=== PATIENT | female | born 1975 | race Caucasian/White ===

== ENCOUNTER 2020-01-11 08:13 | Emergency (ER) | payer BC ==
[~2020-01-11] VITALS: Ht 170.2 cm; Wt 69.1 kg
[2020-01-11 08:38] LABS: CLARITY,URINE CLEAR (Clear); COLOR,URINE YELLOW (Yellow); GLUCOSE, URINE NEGATIVE (Neg); KETONES,URINE NEGATIVE (Neg); LEUKOCYTE ESTERASE ,URINE NEGATIVE (Neg); NITRITES, URINE NEGATIVE (Neg); OCCULT BLOOD,URINE SMALL (Neg); PROTEIN,URINE NEGATIVE (Neg); UROBILINOGEN,URINE 0.2 E.U/dL (0.2-1.0)
[2020-01-11 08:41] LABS: UA COLLECTION TYPE CLN CATCH MIDSTREAM
[2020-01-11 08:44] LABS: MUCUS STRANDS FEW /LPF (Neg); SQUAMOUS EPITHELIAL CELL,UR MANY /LPF (FEW)
[2020-01-11 08:45] LABS: BACTERIA,URINE 1+ /HPF (Neg); WBC,URINE 0-4 /HPF (0-4)
[2020-01-11] MEDS ORDERED: ondansetron 4mg rapidly disintigrating tab PO ONE (09:55)
[2020-01-11] MEDS ORDERED: ketorolac tromethamine 15mg/ml inj. IM ONE (09:55)
[2020-01-11 10:35] LABS: BASOPHILS # (AUTO) 0.1 X10'3 (0-0.2); BASOPHILS % (AUTO) 0.3 % (0-1); EOSINOPHILS % (AUTO) 0.1 % (0-6); HEMATOCRIT 42.2 % (35.0-45.0); LYMPHOCYTES # (AUTO) 1.3 X10'3 (1.1-4.8); LYMPHOCYTES % (AUTO) 6.3 % (21-51); MEAN CORPUSCULAR HEMOGLOBIN 31.5 PG (27.0-31.0); MEAN CORPUSCULAR HGB CONC 33.2 g/dL (33.0-36.5); MEAN CORPUSCULAR VOLUME 94.9 FL (78-98); MEAN PLATELET VOLUME 9.7 FL (7.4-10.4); MONOCYTES # (AUTO) 1.4 X10'3 (0-0.9); MONOCYTES % (AUTO) 6.5 % (2-12); NEUTROPHILS # (AUTO) 18.3 X10'3 (1.8-7.7); NEUTROPHILS % (AUTO) 86.8 % (42-75); PLATELET COUNT 256 X10'3 (140-440); RED BLOOD COUNT 4.44 X10'6 (4.20-5.60); RED CELL DISTRIBUTION WIDTH 13.4 % (11.5-14.5); WHITE BLOOD COUNT 21.1 X10'3 (4.5-11.0)
[2020-01-11 10:53] LABS: ALANINE AMINOTRANSFERASE 17 U/L (12-78); ALBUMIN 3.6 G/DL (3.4-5.0); ALBUMIN/GLOBULIN RATIO 0.9 (1.1-1.5); ALKALINE PHOSPHATASE 76 IU/L (46-116); ANION GAP 12 (8-16); ASPARTATE AMINO TRANSFERASE 14 U/L (10-37); BLOOD UREA NITROGEN 4 MG/DL (7-18); BUN/CREATININE RATIO 5.8 (6.6-38.0); CALCIUM 8.3 MG/DL (8.5-10.1); CHLORIDE 104 MMOL/L (99-107); CREATININE 0.69 MG/DL (0.40-0.90); GLUCOSE 92 MG/DL (70-104); POTASSIUM 3.2 MMOL/L (3.5-5.1); SODIUM 141 MMOL/L (135-145); TOTAL CARBON DIOXIDE 24.8 MMOL/L (24-32); TOTAL PROTEIN 7.6 G/DL (6.4-8.2); eGFR > 90 ML/MIN
[2020-01-11] MEDS ORDERED: normal saline 1000ML IV soln IVB ONE (11:10)
[2020-01-11 11:32] LABS: URINE HCG NEGATIVE (NEG)
[2020-01-11 12:26] LABS: HEMATOCRIT 38.2 % (35.0-45.0); HEMOGLOBIN 12.6 g/dl (12.0-16.0); MEAN CORPUSCULAR HEMOGLOBIN 31.6 PG (27.0-31.0); PLATELET COUNT 217 X10'3 (140-440); RED BLOOD COUNT 3.98 X10'6 (4.20-5.60); RED CELL DISTRIBUTION WIDTH 13.7 % (11.5-14.5)
[2020-01-11] MEDS ORDERED: CefTRIAXone/D5W-Rocephin 1gm 50 ML IV ONE (13:10)
[2020-01-11] MEDS ORDERED: metroNIDAZOLE-Flagyl 500mg/NS 100 ML IV ONE (13:10)
--- NOTE | 2020-01-11 13:39 | NUR ---
pt resting comfortably, pain 2/10 which is improved since arrival, flagly abx started and vitals updated
--- NOTE | 2020-01-11 13:42 | NUR ---
pharmacy called to check on status of rocephine, will have someone go grab it
--- NOTE | 2020-01-11 14:03 | NUR ---
brought pt water no other needs at this time
--- NOTE | 2020-01-11 14:30 | NUR ---
lab at bedside, pt is resting comfortably, 2nd abx started to infuse
[2020-01-11] MEDS ORDERED: METR-159 PO (15:06)
[2020-01-11] MEDS ORDERED: L. R1CAP4 PO (15:06)
[2020-01-11] MEDS ORDERED: ONDA4TAB6 PO (15:06)
[2020-01-11] MEDS ORDERED: CIPR-230 PO (15:06)
[2020-01-11 15:18] VITALS: BP 105/63
== END 2020-01-11 15:20 | disposition home or self-care (01) ==
LOC: ER 08:15
DX: N83.202 Unspecified ovarian cyst, left side (principal); R10.32 Left lower quadrant pain; Z98.51 Tubal ligation status; Z98.890 Other specified postprocedural states
CPT/HCPCS: 36415; 74176; 76830; 76856; 80053; 81001; 81025; 83605; 84145; 85025; 85027; 87040; 96365; 96366; 96368; 96372; 99285; J0696; J1885; J3490; J7030